=== PATIENT | female | born 1975 | race Caucasian/White ===

== ENCOUNTER 2017-05-27 00:31 | Emergency (ER) | payer SELFPAY ==
[2017-05-27] MEDS ORDERED: predniSONE 20 MG TAB ONE (01:31)
[2017-05-27] MEDS ORDERED: Ibuprofen 800 MG TAB ONE (01:31)
--- NOTE | 2017-05-27 06:58 | RAD ---
RIGHT WRIST 3 VIEWS: Date: 05/27/17 No fracture was seen. The carpals appear intact. The distal radius and ulna showed no acute change. IMPRESSION: No acute findings. POS: HOME
== END 2017-05-27 01:30 | disposition home or self-care (01) ==
LOC: BURERS 00:31
DX: S63.501A Unspecified sprain of right wrist, initial encounter (principal); Z86.14 Personal history of Methicillin resistant Staphylococcus aureus infection; F17.210 Nicotine dependence, cigarettes, uncomplicated; W19.XXXA Unspecified fall, initial encounter
CPT/HCPCS: J7506

== ENCOUNTER 2018-06-01 13:09 | Emergency (ER) | payer SELFPAY | END 2018-06-01 13:53 | disposition home or self-care (01) | LOC: BURERS 13:09 | DX: R05 Cough (principal); F17.210 Nicotine dependence, cigarettes, uncomplicated | CPT/HCPCS: 99281 ==

== ENCOUNTER 2020-03-28 06:13 | Emergency (ER) | payer SELFPAY ==
[2020-03-28] MEDS ORDERED: Pantoprazole 40 MG VIAL ONE (06:25)
[2020-03-28] MEDS ORDERED: Mag-Al Plus 1200 MG/1200 MG/120 MG/30 ML UDCUP ONE (06:25)
[2020-03-28] MEDS ORDERED: Nitroglycerin 0.4 MG TAB 1 EACH ONE (06:25)
[2020-03-28] MEDS ORDERED: Aspirin Chewable 81 MG TAB ONE (06:25)
[2020-03-28] MEDS ORDERED: Lidocaine Viscous Sol 2% 15 ml UD Cup ONE (06:25)
[2020-03-28 06:46] LABS: #Basophils 0.1 thou/uL (0.0-0.2); #Eosinphils 0.2 thou/uL (0.0-0.7); #Lymphocytes 3.1 thou/uL (1.20-3.40); #Monocytes 0.5 thou/uL (0.11-0.59); #Neutrophils 3.1 thou/uL (1.40-6.50); %Basophils 1.5 % (0.0-1.0); %Eosinophils 3.3 % (0.0-10.0); %Lymphocytes 44.2 % (21.0-51.0); %Monocytes 7.1 % (0.0-10.0); %Neutrophils 43.9 % (42.0-75.0); Hemoglobin 13.8 g/dL (12.0-16.0); Mean Corpuscular HGB CONC 31.9 g/dL (32.0-36.0); Mean Corpuscular Hemoglobin 32.2 pg (27.0-31.0); Platelet Count 262 thou/uL (130-400); RBC Distribution Width 11.8 % (11.5-14.5); White Blood Cell (WBC) Count 7.1 thou/uL (4.8-10.8)
[2020-03-28 06:58] LABS: ALT (SGPT) 28 U/L (8-55); AST (SGOT) 22 U/L (5-34); Albumin 4.4 g/dL (3.5-5.0); Alkaline Phosphatase 94 U/L (40-110); Anion Gap 15 mmol/L (10-20); BUN (Urea Nitrogen) 9 mg/dL (7.0-18.7); Bilirubin, Total 0.6 mg/dL (0.2-1.2); Calc. Creatinine Clearance 0 mL/min (70-130); Calcium 10.5 mg/dL (7.8-10.44); Carbon Dioxide 24 mmol/L (22-29); Chloride 105 mmol/L (98-107); Estimated GFR-MDRD Greater than 90; Globulin 2.9 g/dL (2.4-3.5); Glucose 114 mg/dL (70-105); Lipase 21 U/L (8-78); Potassium 3.8 mmol/L (3.5-5.1); Protein, Total 7.3 g/dL (6.0-8.3); Sodium 140 mmol/L (136-145)
[2020-03-28 07:31] LABS: Bilirubin Negative (Negative); Blood, Urine Negative (Negative); Clarity Clear (Clear); Glucose, Urine (Dipstick) Negative (Negative); Ketone, Urine Negative (Negative); Leukocyte Negative (Negative); Nitrite Negative (Negative); Protein, Urine (Dipstick) Negative (Neg-Trace); Urobilinogen 0.2 mg/dL (Less than 2)
[2020-03-28 07:43] LABS: THC/Cannabinoid Screen Detected (NotDetected)
[2020-03-28 07:44] LABS: Amphetamine Not Detected (NotDetected); Barbiturates Screen Not Detected (NotDetected); Benzodiazepine Screen Not Detected (NotDetected); Cocaine Metabolite Screen Not Detected (NotDetected); Medtox Control Line Valid? VALID (VALID); Methadone Not Detected (NotDetected); Methamphetamine Not Detected (NotDetected); Opiate Screen Not Detected (NotDetected); Oxycodone Screen Not Detected (NotDetected); Phencyclidine (PCP) Not Detected (NotDetected); Tricyclic Screen Not Detected (NotDetected)
[2020-03-28] MEDS ORDERED: Lidocaine 2% Viscous Solution 10 ML, Aluminum & Magnesium Hydroxide 30 ML SSW SCH (08:00)
[2020-03-28] MEDS ORDERED: Pantoprazole 40 MG VIAL IVP SCH (08:00)
[2020-03-28] MEDS ORDERED: Nitroglycerin 0.4 MG TAB (25 Tab Bottle) SL SCH (08:00)
[2020-03-28] MEDS ORDERED: Sucralfate 1 GM TAB PO SCH (08:00)
[2020-03-28] MEDS ORDERED: Aspirin Chewable 81 MG TAB PO SCH (08:00)
--- NOTE | 2020-03-28 14:42 | RAD ---
PORTABLE CHEST: DATE: 03/28/2020. FINDINGS: The heart is normal in size and the lungs are clear. This portable film at 0716 shows no active thor acic disease. There is no vascular congestion, edema, or pleural effusion. IMPRESSION: No acute finding. POS: HOME
== END 2020-03-28 09:54 | disposition home or self-care (01) ==
LOC: BURERS 06:13
DX: K29.00 Acute gastritis without bleeding (principal); R07.9 Chest pain, unspecified; F41.9 Anxiety disorder, unspecified; F17.210 Nicotine dependence, cigarettes, uncomplicated; Z79.899 Other long term (current) drug therapy
CPT/HCPCS: 36415; 71045; 80053; 80306; 81003; 83690; 84443; 84484; 84702; 85025; 93005; 94760; 96374; C9113

== ENCOUNTER 2021-12-26 12:25 | Emergency (ER) | payer OTHER, SELFPAY | END 2021-12-26 13:11 | disposition home or self-care (01) | LOC: BURERS 12:25 | DX: S93.602A Unspecified sprain of left foot, initial encounter (principal); F17.210 Nicotine dependence, cigarettes, uncomplicated; W18.40XA Slipping, tripping and stumbling without falling, unspecified, initial encounter; Y92.69 Other specified industrial and construction area as the place of occurrence of the external cause ==

== ENCOUNTER 2022-08-10 14:25 | Emergency (ER) | payer OTHER, SELFPAY | END 2022-08-10 15:23 | disposition home or self-care (01) | LOC: BURERS 14:25 | DX: S63.502A Unspecified sprain of left wrist, initial encounter (principal); F17.210 Nicotine dependence, cigarettes, uncomplicated; W19.XXXA Unspecified fall, initial encounter ==

== ENCOUNTER 2023-04-15 13:55 | Emergency (ER) | payer OTHER ==
[2023-04-15 14:33] LABS: #Eosinphils 0.1 thou/uL (0.0-0.7); #Lymphocytes 2.3 thou/uL (1.20-3.40); #Monocytes 0.4 thou/uL (0.11-0.59); #Neutrophils 4.3 thou/uL (1.40-6.50); %Basophils 0.7 % (0.0-1.0); %Eosinophils 1.7 % (0.0-10.0); %Lymphocytes 32.1 % (21.0-51.0); %Neutrophils 60.5 % (42.0-75.0); Hematocrit 41.7 % (36.0-47.0); Hemoglobin 14.7 g/dL (12.0-16.0); Mean Corpuscular HGB CONC 35.3 g/dL (32.0-36.0); Mean Corpuscular Hemoglobin 34.6 pg (27.0-31.0); Mean Corpuscular Volume 98.2 fl (78.0-98.0); Mean Platelet Volume 7.1 fL (7.4-10.4); Platelet Count 269 10x3/uL (130-400); Red Blood Cell (RBC) Count 4.24 mill/uL (4.20-5.40); White Blood Cell (WBC) Count 7.1 10x3/uL (4.8-10.8)
[2023-04-15 14:37] LABS: MDiff Complete? YES
[2023-04-15 14:50] LABS: ALT (SGPT) 17 U/L (8-55); AST (SGOT) 13 U/L (5-34); Albumin 4.3 g/dL (3.5-5.0); Alkaline Phosphatase 58 U/L (40-110); Anion Gap 12 mmol/L (10-20); BUN (Urea Nitrogen) 10 mg/dL (7.0-18.7); Bilirubin, Total 0.2 mg/dL (0.2-1.2); Calc. Creatinine Clearance 0 mL/min (70-130); Calcium 10.1 mg/dL (7.8-10.44); Carbon Dioxide 24 mmol/L (22-29); Chloride 108 mmol/L (98-107); Estimated GFR 104; Globulin 2.9 g/dL (2.4-3.5); Glucose 101 mg/dL (70-105); Protein, Total 7.2 g/dL (6.0-8.3); Sodium 140 mmol/L (136-145)
[2023-04-15 14:51] LABS: Troponin I Less than 0.010 ng/mL (< 0.028)
== END 2023-04-15 16:09 | disposition home or self-care (01) ==
LOC: BURERS 13:55
DX: H83.09 Labyrinthitis, unspecified ear (principal); F17.210 Nicotine dependence, cigarettes, uncomplicated
CPT/HCPCS: 36415; 80053; 84484; 85025; 93005; 96360

== ENCOUNTER 2023-07-09 15:56 | Emergency (ER) | payer OTHER ==
[2023-07-09] MEDS ORDERED: Dexamethasone 10 MG/ML VIAL ONE (16:55)
[2023-07-09] MEDS ORDERED: Ketorolac Tromethamine 30 MG (1 mL) VIAL ONE (16:55)
== END 2023-07-09 17:20 | disposition home or self-care (01) ==
LOC: BURERS 15:56
DX: M54.41 Lumbago with sciatica, right side (principal); F17.200 Nicotine dependence, unspecified, uncomplicated
CPT/HCPCS: 96372; 99283; J1100; J1885

== ENCOUNTER 2023-11-23 11:16 | Emergency (ER) | payer OTHER ==
[2023-11-23] MEDS ORDERED: Ketorolac Tromethamine 30 MG (1 mL) VIAL ONE (11:37)
[2023-11-23] MEDS ORDERED: Ondansetron PF 4 MG/2 ML Vial ONE (11:37)
[2023-11-23 11:54] LABS: #Basophils 0.1 thou/uL (0.0-0.2); #Lymphocytes 1.3 thou/uL (1.20-3.40); #Monocytes 0.3 thou/uL (0.11-0.59); #Neutrophils 11.8 thou/uL (1.40-6.50); %Basophils 0.4 % (0.0-1.0); %Eosinophils 0.1 % (0.0-10.0); %Lymphocytes 9.8 % (21.0-51.0); %Monocytes 2.2 % (0.0-10.0); %Neutrophils 87.5 % (42.0-75.0); Hematocrit 45.5 % (36.0-47.0); Hemoglobin 15.9 g/dL (12.0-16.0); Mean Corpuscular Hemoglobin 33.8 pg (27.0-31.0); Mean Corpuscular Volume 96.7 fl (78.0-98.0); Mean Platelet Volume 6.4 fL (7.4-10.4); Platelet Count 271 10x3/uL (130-400); RBC Distribution Width 10.8 % (11.5-14.5); White Blood Cell (WBC) Count 13.5 10x3/uL (4.8-10.8)
[2023-11-23 12:03] LABS: ALT (SGPT) 19 U/L (8-55); AST (SGOT) 13 U/L (5-34); Albumin 4.9 g/dL (3.5-5.0); Alkaline Phosphatase 48 U/L (40-110); Anion Gap 12 mmol/L (10-20); BUN (Urea Nitrogen) 8 mg/dL (7.0-18.7); Bilirubin, Total 0.5 mg/dL (0.2-1.2); Calc. Creatinine Clearance 0 mL/min (70-130); Calcium 10.6 mg/dL (7.8-10.44); Carbon Dioxide 23 mmol/L (22-29); Chloride 109 mmol/L (98-107); Estimated GFR 106; Globulin 2.6 g/dL (2.4-3.5); Glucose 122 mg/dL (70-105); Potassium 3.9 mmol/L (3.5-5.1); Protein, Total 7.5 g/dL (6.0-8.3); Sodium 140 mmol/L (136-145)
[2023-11-23 12:36] LABS: Bilirubin Negative (Negative); Blood, Urine Negative (Negative); Clarity Clear (Clear); Glucose, Urine (Dipstick) Negative (Negative); Ketone, Urine Negative (Negative); Leukocyte Negative (Negative); Nitrite Negative (Negative); Protein, Urine (Dipstick) Negative (Neg-Trace); Specific Gravity, Urine 1.015 (1.005-1.030); Urobilinogen 0.2 mg/dL (Less than 2); pH, Urine 6.5 (5.0-9.0)
[2023-11-23 12:50] LABS: Bacteria/HPF None Seen HPF (None Seen); CAUTI Indications for Culture Dysuria,urgency,freq; RBC/HPF None Seen HPF (0-3); Squamous Epithelial 0-3 HPF (0-3); WBC/HPF None Seen HPF (0-3)
[2023-11-23 12:51] LABS: Urine Culture Reflex No No
== END 2023-11-23 13:12 | disposition home or self-care (01) ==
LOC: BURERS 11:16
DX: R10.9 Unspecified abdominal pain (principal); F17.290 Nicotine dependence, other tobacco product, uncomplicated
CPT/HCPCS: 74176; 80053; 81001; 85025; 96374; 96375; J1885; J2405